=== PATIENT | female | born 1970 | race Caucasian/White ===

== ENCOUNTER 2016-08-01 13:13 | Emergency (ER) | payer MEDICAID ==
[~2016-08-01] VITALS: Ht 167.6 cm; Wt 81.6 kg
[~2016-08-01 13:13] MED LIST: ALBUTEROL 117 GM/INH IN; AMITRIPTYLINE 550 MG PO; BACTRIM DS 8001 TA1 PO; DARVOCET-N6 EACH/PAK PO; GABAPENTIN 600600 MG PO; GABAPENTIN800 MG PO; IBUPROFEN800 MG PO; KEFLEX 500MG.500 MG PO; LASIX20 MG PO; LORTAB 5/500 501 TAB PO; MEDROL 4MG. DOSE4 MG PO; MIRAPEX 0.120.125 MG PO; NAPROSYN500 M1 PO; OXYCODONE15 MG PO; PHENERGAN 25MG.25 M1 PO; REQUIP 1 MG TABL1 MG PO; ROBAXIN-750750 MG PO; SEPTRA DS 800 M1 TAB PO; SUBOXONE 8 MG-21 FIL SL; TORADOL10 MG PO; VALIUM5 MG PO; VIBRAMYCIN 100100 MG PO; VICODIN 5/500 T1 TAB PO; XANAX2 MG PO; ZOFRAN ODT4 MG PO
[2016-08-01] MEDS ORDERED: SYNTHROID0.112 MG PO (13:22)
--- NOTE | 2016-08-01 13:33 | Emergency Room Report ---
History of Present Illness Time Seen by [id number] Presenting Problem in Triage Pt arrived:Walked Presenting Problem:PATIENT STATES SHES HAD N/V FOR 2 DAYS. Onset of symptoms date/time:07/30/16/ or onset unknown for:MEDICAL HX UNKNOWN Treatment Prior to Arrival: PHILANTHROPY OFFICER Provided by: Sepsis Risk Assessment: Temp: 98.1 B/P: 136/84 MAP: 101 Pulse: 94 Resp: 20 Recent fever? N Clinical Suspician of Infection? N Mental Status: 1 - Regular (Normal Baseline) Sepsis Risk:Possible Sepsis Risk Have you (or family members/close friends) recently traveled outside the [place]? N If Yes, where/when: Have you had exposure to infectious disease within the past month? TB? Other? Specify: Source patient, RN notes reviewed, family, RN/MD Exam Limitations no limitations Comment This is a 45-year-old lady arriving to the emergency room with nausea, vomiting and diarrhea for the past 2 days. Multiple family members have been sick with similar complaints. She denies any recent travel or exposure to sick contacts. ALLERGIES Coded Allergies: codeine (Mild, CHEST PAIN 04/03/16) Home Medications Reported Medications Gabapentin (Gabapentin 800MG) 800 MG PO TID ROPINIROLE HCL (Requip 1 Mg) 2 MG PO QHS Amitriptyline Hcl (Amitriptyline) 50 MG PO QHS #60 BUPRENORPHINE HCL/NALOXONE HCL (Suboxone 8 MG-2 MG Sl Film) 1 SL DAILY #28 Levothyroxine Sodium (Synthroid 0.112MG) 0.112 MG PO DAILY History Medical History General CAD? No Angina: No SC: No Hypertension? No Hyperlipidemia? No CHF? No DVT? No PE? No COPD? No Asthma? No Anemia? No GERD? No Gastric ulcers? No GI Bleed? No Hernia? No Thyroid Problems? No Hypothyroidism? Yes CVA? No Seizures? No Diabetes? No Renal Insuffiency? No End Stage Renal Disease? No UTI? No Stones? No BPH? No GB Disease: Yes Nephritic Syndrome? No Asplenia? No Hepatitis? No Sickle Cell Disease? No Arthritis? No Migraines? No Cataracts? No Glaucoma? No MRSA? No HIV? No TB? No Anxiety? No Depression? No Cancer? No Immunization Hx DT/Tetanus 5-10 Years Ago Flu NEVER HAD Pneumonia Never Had Surgical Hx Previous Surgery?Y BACK SX C SECTION X2 APPY TONSILS AND ADENOIDS HYSTERECTOMY 2009 [employer] Hx LMP N/A Family History Family Hx Diabetes No CAD No Hypertension No Hyperlipidemia No Cancer Yes TB No Social History Smoking Hx Smoker: Current Every Day Smoker Tobacco: Yes Type Cigarettes Packs/day 1 1/2 - 2 Packs Alcohol Alcohol: No Review of Systems All Other Systems Reviewed and Negative Gastrointestinal diarrhea, nausea, vomiting Physical Exam Vital Signs Vital Signs Date Time Temp Pulse Resp B/P Pulse O2 O2 Flow FiO2 Ox Delivery Rate 08/01 1341 98.1 94 20 136/84 97 08/01 1316 98.1 94 20 136/84 97 General Appearance normal appearance, WD/WN, no apparent distress Neck normal inspection, non-tender, supple, full range of motion Respiratory Status Yes: trachea midline, chest symmetrical, non tender chest. No: respiratory distress. Lung Sounds bilateral: normal breath sounds, lungs clear. Cardiovascular normal exam, regular rate/rhythm, no peripheral edema, no gallop, no JVD, no murmur, no rub, normal peripheral pulses Peripheral Pulses Pulses normal Yes Gastrointestinal normal bowel sounds, normal exam, non tender, soft, no organomegaly Extremities non-tender, normal range of motion, normal inspection Neurologic alert, direct care provider II-XII nml as tested, normal exam, oriented x 3 Mental status normal mood/affect Skin intact, normal color, warm/dry Medical Decision Making LABS/Meds/Orders Pt receiving controlled substance in ED? No Comment On reevaluation patient appears medically stable, clinically improving. Advised patient of workup results, needs to increase fluid intake, take medications as directed and follow-up with PCP per discharge instructions. Departure Departure Time of Disposition 1333 Disposition DC Home or Self Care(routine) Clinical Impression Primary Impression: Gastroenteritis Secondary Impressions: Viral syndrome Condition STABLE Referrals Danny SIDHU,Jj Gatica (Family): 1 Week-Call Office If not better Patient Instructions DI for Viral Gastroenteritis -- Adult Additional Instructions Please take [id number] Imodium for your diarrhea, drink plenty of fluids, take the Phenergan as instructed. If not better follow-up with your family physician as directed. Discharge Counseling Counseled pt/family regarding diagnosis, medications/RX, home care, follow up needs Comment Please take [id number] Imodium for your diarrhea, drink plenty of fluids, take the Phenergan as instructed. If not better follow-up with your family physician as directed. Prescriptions Current Visit Scripts PROMETHAZINE HCL (Phenergan 25MG Tab (Geq)) 25 MG PO Q6HP PRN N/V #30 TAB ED Critical Care Critical Care No at 1256
--- NOTE | 2016-08-01 13:33 | Emergency Room Report ---
History of Present Illness Time Seen by [id number] Presenting Problem in Triage Pt arrived:Walked Presenting Problem:PATIENT STATES SHES HAD N/V FOR 2 DAYS. 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 N Clinical Suspician of Infection? N Mental Status: 1 - Regular (Normal Baseline) Sepsis Risk:Possible Sepsis Risk Have you (or family members/close friends) recently traveled outside the [place]? N If Yes, where/when: Have you had exposure to infectious disease within the past month? TB? Other? Specify: Source patient, RN notes reviewed, family, RN/MD Exam Limitations no limitations Comment This is a 45-year-old lady arriving to the emergency room with nausea, vomiting and diarrhea for the past 2 days. Multiple family members have been sick with similar complaints. She denies any recent travel or exposure to sick contacts. ALLERGIES Coded Allergies: codeine (Mild, CHEST PAIN 04/03/16) Home Medications Reported Medications Gabapentin (Gabapentin 800MG) 800 MG PO TID ROPINIROLE HCL (Requip 1 Mg) 2 MG PO QHS Amitriptyline Hcl (Amitriptyline) 50 MG PO QHS #60 BUPRENORPHINE HCL/NALOXONE HCL (Suboxone 8 MG-2 MG Sl Film) 1 SL DAILY #28 Levothyroxine Sodium (Synthroid 0.112MG) 0.112 MG PO DAILY History Medical History General CAD? No Angina: No DC: No Hypertension? No Hyperlipidemia? No CHF? No DVT? No PE? No COPD? No Asthma? No Anemia? No GERD? No Gastric ulcers? No GI Bleed? No Hernia? No Thyroid Problems? No Hypothyroidism? Yes CVA? No Seizures? No Diabetes? No Renal Insuffiency? No End Stage Renal Disease? No UTI? No Stones? No BPH? No GB Disease: Yes Nephritic Syndrome? No Asplenia? No Hepatitis? No Sickle Cell Disease? No Arthritis? No Migraines? No Cataracts? No Glaucoma? No MRSA? No HIV? No TB? No Anxiety? No Depression? No Cancer? No Immunization Hx DT/Tetanus 5-10 Years Ago Flu NEVER HAD Pneumonia Never Had Surgical Hx Previous Surgery?Y BACK SX C SECTION X2 APPY TONSILS AND ADENOIDS HYSTERECTOMY 2009 [employer] Hx LMP N/A Family History Family Hx Diabetes No CAD No Hypertension No Hyperlipidemia No Cancer Yes TB No Social History Smoking Hx Smoker: Current Every Day Smoker Tobacco: Yes Type Cigarettes Packs/day 1 1/2 - 2 Packs Alcohol Alcohol: No Review of Systems All Other Systems Reviewed and Negative Gastrointestinal diarrhea, nausea, vomiting Physical Exam Vital Signs Vital Signs Date Time Temp Pulse Resp B/P Pulse O2 O2 Flow FiO2 Ox Delivery Rate 08/01 1341 98.1 94 20 136/84 97 08/01 1316 98.1 94 20 136/84 97 General Appearance normal appearance, WD/WN, no apparent distress Neck normal inspection, non-tender, supple, full range of motion Respiratory Status Yes: trachea midline, chest symmetrical, non tender chest. No: respiratory distress. Lung Sounds bilateral: normal breath sounds, lungs clear. 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 No Comment On reevaluation patient appears medically stable, clinically improving. Advised patient of workup results, needs to increase fluid intake, take medications as directed and follow-up with PCP per discharge instructions. Departure Departure Time of Disposition 1333 Disposition DC Home or Self Care(routine) Clinical Impression Primary Impression: Gastroenteritis Secondary Impressions: Viral syndrome Condition STABLE Referrals Danny SIDHU,Jj Gatica (Family): 1 Week-Call Office If not better Patient Instructions DI for Viral Gastroenteritis -- Adult Additional Instructions Please take [id number] Imodium for your diarrhea, drink plenty of fluids, take the Phenergan as instructed. If not better follow-up with your family physician as directed. Discharge Counseling Counseled pt/family regarding diagnosis, medications/RX, home care, follow up needs Comment Please take [id number] Imodium for your diarrhea, drink plenty of fluids, take the Phenergan as instructed. If not better follow-up with your family physician as directed. Prescriptions Current Visit Scripts PROMETHAZINE HCL (Phenergan 25MG Tab (Geq)) 25 MG PO Q6HP PRN N/V #30 TAB ED Critical Care Critical Care No at [id number]
[2016-08-01] MEDS ORDERED: PHENERGAN25 M3 PO (13:37)
[2016-08-01 13:41] VITALS: BP 136/84
[2016-09-19] MEDS ORDERED: REMERON15 MG PO (13:56)
[2016-09-19] MEDS ORDERED: TOPAMAX100 MG PO (13:57)
[2016-09-19] MEDS ORDERED: TAMIFLU 75MG CA75 MG PO (14:30)
[2016-09-22] MEDS ORDERED: PROVENTIL0.09 MG/A1 IH (18:54)
[2016-09-22] MEDS ORDERED: MEDROL 4MG. DOSE4 MG PO (18:54)
[2016-09-22] MEDS ORDERED: ZITHROMAX Z PA250 MG PO (18:54)
[2016-09-22] MEDS ORDERED: ZOFRAN4 MG PO (18:54)
[2016-10-07] MEDS ORDERED: KLOR-CON M2020 MEQ PO (19:29)
[2016-10-07] MEDS ORDERED: LASIX 40MG. TAB40 MG PO (19:29)
== END 2016-08-01 13:42 | disposition home or self-care (01) ==
LOC: ER 13:13
DX: B52.9 Plasmodium malariae malaria without complication (principal); B34.9 Viral infection, unspecified

== ENCOUNTER → 2016-09-12 | Outpatient (CLI) | payer MEDICAID ==
[~2016-09-12] MED LIST changes: +KLOR-CON M2020 MEQ PO; +LASIX 40MG. TAB40 MG PO; +PHENERGAN25 M3 PO; +PROVENTIL0.09 MG/A1 IH; +REMERON15 MG PO; +SYNTHROID0.112 MG PO; +TAMIFLU 75MG CA75 MG PO; +TOPAMAX100 MG PO; +ZITHROMAX Z PA250 MG PO; +ZOFRAN4 MG PO
[2016-09-12 14:49] LABS: BUN 14 mg/dL (7-18)
[2016-09-12 15:30] LABS: GFR (ESTIMATED) 90 ML/MIN (59-)
== END ==
LOC: LAB 13:15
PROVIDERS: Emergency Medicine
DX: E66.3 Overweight (principal)